=== PATIENT | female | born 1975 | race Caucasian/White ===

== ENCOUNTER 2016-04-24 08:27 | Emergency (ER) | payer MEDICAID ==
[2016-04-24 08:33] VITALS: BP 86/49
[2016-04-24] MEDS ORDERED: EPINEPHRine /Lidocaine 1% 20 mL Vial INJ ONE (08:39)
[2016-04-24] MEDS ORDERED: Sodium Chloride 0.9% 1,000 ML IV ONE (08:49)
[2016-04-24 09:28] LABS: % BASOPHILS 0.5 % (0.0-2.0); % LYMPHOCYTES 15.1 % (20.0-50.0); % NEUTROPHILS 67.4 % (40.0-80.0); HEMOGLOBIN 13.4 gm/dL (11.7-15.5); MEAN CELL VOLUME 86.7 fl (81-100); MEAN CORPUSCULAR HGB CONC 33.4 pg (28.0-36.0); NEUTROPHILE ABSOLUTE 3.8 Th/cmm (1.8-8.0); PLATELET COUNT 148 Th/cmm (150-400); RED BLOOD COUNT 4.62 Mil/cmm (3.80-5.10); RED CELL DISTRIBUTION WIDTH 12.1 % (11.5-20.0); WHITE BLOOD COUNT 5.6 Th/cmm (4.8-10.8)
--- NOTE | 2016-04-24 09:33 | ED Physician Chart ---
Chief Complaint/HPI - Patient Information Date Seen:: 04/24/16 Time Seen:: 09:27 Chief Complaint:: lac face History of Present Illness:: pt here for large frontal lac sustained 30 min before ed. pt was at home..had felt dizzy all morning and stood up and walked across rm...had syncope spell and fell hit door frame w face. lrg vertical central forehead lac. has pain in head only at lac area now. denies neck pain. no neuro changes. pt has had a mild cough and clear rhinitis lately. no jose illness. feels sob at times briefly going back 3x in last year. no hx of palpitations. no cp. last saw a dr 3 yrs ago and all was well. she was told her chol was high but was not put on any med for this. pt took nyquil last nt for sinus congestion.. Allergies:: Allergies Allergy/AdvReac Type Severity Reaction Status Date / Time No Known Allergies Allergy Verified 04/24/16 08:32 Vitals:: Vital Signs - 8 hr 04/24/16 04/24/16 08:33 08:42 Temp 100.4 F HR 85 RR 16 BP 86/49 86/49 O2 Sat % 99 Historian:: Patient, Family Member () Review of Systems - Review of Systems General/Constitutional: Fever (? in ed), No fever, No chills, No weight loss, No weakness, No diaphoresis, No edema, No loss of appetite Skin: No skin lesions, No rash, Bruising Head: Headache, No headache, No light-headedness Eyes: No loss of vision, No pain, No diplopia ENT: No earache, Nasal drainage, No sore throat, No tinnitus Neck: No neck pain, No swelling, No thyromegaly, No stiffness, No mass noted Cardio Vascular: No chest pain, No palpitations, No PND, No orthopnea, No edema Pulmonary: No SOB, Cough, No sputum, No wheezing GI: No nausea, No vomiting, No diarrhea, No pain, No melena, No hematochezia, No constipation, No hematemesis G/U: No dysuria, No frequency, No hematuria Musculoskeletal: No bone or joint pain, No back pain, No muscle pain Endocrine: No polyuria, No polydipsia Psychiatric: No prior psych history, No depression, No anxiety, No suicidal ideation Hematopoietic: No bruising, No lymphadenopathy Allergic/Immuno: No urticaria, No angioedema Neurological: No syncope, No focal symptoms, No weakness, No paresthesia, No headache, No seizure, No dizziness, No confusion, No vertigo Past Medical History - Past Medical History Past Medical History: Dyslipidemia Social History: , Other (2 kids) Medication: None Family Medical History - Family Member Mother History Unknown: Yes Ethnicity: Physical Exam - Physical Examination General/Constitutional: Awake, Well-developed, well-nourished, Alert, No distress, GCS 15, Non-toxic appearing, Ambulatory Head: Atraumatic Eyes: Lids, conjuctiva normal, PERRL, EOMI Skin: No rash, No skin lesions, No ecchymosis, Well hydrated, No lymphadenopathy Other Skin comments:: central forhead has a 3.5cm vertical deep lac. no extension to [place]. no active bleed. no jose vasc or neuro injury or defecit. no tndr post neck. eomi/perrla ENMT: External ears, nose nl, Nasal exam nl, Lips, teeth, gums nl Neck: Nontender, Full ROM w/o pain, No JVD, No nuchal rigidity, No bruit, No mass, No stridor Respiratory: Nl effort/Exclusion, Clear to Auscultation, No Wheeze/Rhonchi/Rales Cardio Vascular: RRR, No murmur, gallop, rubs, NL S1 S2 GI: No tenderness/rebounding/guarding, No organomegaly, No hernia, Normal BS's, Nondistended, No mass/bruits, No McBurney tenderness : No CVA tenderness Extremities: No tenderness or effusion, Full ROM, normal strength in all extremities, No edema, Normal digits & nails Neuro/Psych: Alert/oriented, DTR's symmetric, Normal sensory exam, Normal motor strength, Judgement/insight normal, Mood normal, Normal gait, No focal deficits Other Neuro/Psych comments:: pt prefers latvian language. is making sense. translates at times. Misc: normal gait, Normal back, No paraspinal tenderness Labs/Radiology/EKG Results - Lab Results Results: Laboratory Tests 04/24/16 09:00 Urine Test NEGATIVE Laboratory Tests 01/04/24/16 04/24/16 09:00 09:00 09:25 WBC 5.6 RBC 4.62 Hgb 13.4 Hct 40.0 MCV 86.7 MCH 29.0 MCHC Differential 33.4 RDW 12.1 Plt Count 148 L MPV 9.0 Neutrophils % 67.4 Lymphocytes % 15.1 L Monocytes % 12.0 H Eosinophils % 5.0 Basophils % 0.5 Sodium Potassium Chloride Carbon Dioxide Anion Gap BUN Creatinine Est GFR ( Amer) Est GFR (Non-Af Amer) BUN/Creatinine Ratio Glucose Calcium Total Bilirubin AST ALT Alkaline Phosphatase Troponin I Total Protein Albumin Globulin Albumin/Globulin Ratio Serum , Qual Urine Source CLEAN C Urine Color YELLOW Urine Clarity SL. CLOUDY Urine pH 7.0 Ur Specific [place] 1.020 Urine Protein TRACE Urine Glucose (UA) NEGATIVE Urine Ketones NEGATIVE Urine Blood NEGATIVE Urine Nitrate POSITIVE H Urine Bilirubin NEGATIVE Urine Urobilinogen 0.2 Ur Leukocyte Esterase TRACE H Urine RBC 0-2 Urine WBC 6-10 H Ur Epithelial Cells FEW Urine Bacteria MANY Urine Test NEGATIVE 04/24/16 04/24/16 04/24/16 09:25 09:25 09:25 WBC RBC Hgb Hct MCV MCH MCHC Differential RDW Plt Count MPV Neutrophils % Lymphocytes % Monocytes % Eosinophils % Basophils % Sodium 133 L Potassium 3.4 L Chloride 103 Carbon Dioxide 25.8 Anion Gap 7.6 BUN 10 Creatinine 0.9 Est GFR ( Amer) > 60.0 Est GFR (Non-Af Amer) > 60.0 BUN/Creatinine Ratio 11.1 Glucose 121 H Calcium 9.0 Total Bilirubin 0.4 AST 20 ALT 15 Alkaline Phosphatase 51 Troponin I < 0.01 L Total Protein 7.4 Albumin 4.3 Globulin 3.1 Albumin/Globulin Ratio 1.4 Serum , Qual NEGATIVE Urine Source Urine Color Urine Clarity Urine pH Ur Specific [place] Urine Protein Urine Glucose (UA) Urine Ketones Urine Blood Urine Nitrate Urine Bilirubin Urine Urobilinogen Ur Leukocyte Esterase Urine RBC Urine WBC Ur Epithelial Cells Urine Bacteria Urine Test - Radiology Results Results: ct head nad cxr nad - EKG Interpretations EKG Time:: 09:55 Rhythm: nsr [place]: 64 Rate: 77 Comments:: wnl/ Assessment Location:: 3.5cm vertical forehead lac betadyne prep. lido 1pct w ept 8ml local for anesth copious ns irrigation explored...no f.b. sutured w 6.0 nylon w good approximation. Laceration Type:: Intermediate ED Septic Shock - . Is Septic Shock (SBP<90, OR Lactate>4 mmol\L) present?: No - <6hrs of presentation: Vital Signs: Vital Signs - 8 hr 04/24/16 04/24/16 08:33 08:42 Temp 100.4 F HR 85 RR 16 BP 86/49 86/49 O2 Sat % 99 Reassessment (Disposition) - Reassessment Reassessment Condition:: Improved - Diagnosis Diagnosis:: 1) s/p fall, near-syncope ...believed due to nyquil side effects vs vasovagal 2) 3.5cm forhead lac s/p sutured in ED 3) viral syndrome 4) uti - Aftercare/Follow up Instructions Aftercare/Follow-Up Instructions:: Counseled pt & family regarding lab results/ diagnosis & need follow up Notes:: had a long talk w pt , sister and regarding results and poss dispo. offered admit and dw pt/fam pros and cons of admission. pt is stating she feels well now and wants to go home. no palpitations nor cp in ed. no GAN now. no n/v. not orthostatic. family says pt will not be alone at home. there are adults who can observe her for neuro changes q 2 hrs at home...ret if worse or sz or vomiting of confusion or focal neuro change. will rx claritin for nasal decongestant...not advising further nyquil. Medication Prescribed:: rx claritin and levaquin (500/d x1wk for uti) - Patient Disposition Discharge/Transfer:: Home Condition at Disposition:: Improved
[2016-04-24 09:38] LABS: URINE BILIRUBIN NEGATIVE (NEGATIVE); URINE BLOOD NEGATIVE (NEGATIVE); URINE COLOR YELLOW; URINE GLUCOSE (UA) NEGATIVE (NEGATIVE); URINE KETONE NEGATIVE (NEGATIVE); URINE PROTEIN TRACE mg/dL (NEGATIVE); URINE UROBILINOGEN 0.2 E.U./dL (0.2 - 1.0)
[2016-04-24 09:41] LABS: URINE BACTERIA MANY /hpf (NONE SEEN); URINE EPITHELIAL CELLS FEW /lpf (FEW); URINE RBC 0-2 /hpf (0-5)
[2016-04-24 09:43] LABS: ALB/GLOB RATIO 1.4 (1.0-1.8); ALKALINE PHOSPHATASE 51 U/L (34-104); ANION GAP 7.6 (7.0-16.0); BILIRUBIN,TOTAL 0.4 mg/dL (0.3-1.0); BUN - UREA NITROGEN 10 mg/dL (7-25); BUN/CREATININE RATIO 11.1; CARBON DIOXIDE 25.8 mEq/L (21.0-31.0); CHLORIDE 103 mEq/L (98-107); CREATININE - SERUM 0.9 mg/dL (0.6-1.2); GLUCOSE 121 mg/dL (70-105); POTASSIUM SERUM 3.4 mEq/L (3.5-5.1); SGOT 20 U/L (13-39); SGPT/ALT 15 U/L (7-52); SODIUM SERUM 133 mEq/L (136-145)
--- NOTE | 2016-04-24 10:40 | Diagnostic Imaging Report ---
CT scan of the brain without contrast History: Syncope, trauma Total DLP equals 507 CTDI equals 31.7 Axial sections were obtained from the base of the skull to the vertex. There is a normal ventricular system size. No focal parenchymal lesions are seen. No evidence of any mass effect or shift of midline structures. No extra-axial masses or abnormal fluid collections. Impression: Negative examination
--- NOTE | 2016-04-24 10:41 | Diagnostic Imaging Report ---
Portable chest x-ray History: Fever Allowing for portable technique the heart size is normal. No focal pulmonary parenchymal processes. No hilar or mediastinal abnormalities. Impression: No acute abnormalities.
[2016-04-24] MEDS ORDERED: Levofloxacin 500mg/100mL 500 MG/100 ML BAG IV ONE ×2 (11:13→11:29)
== END 2016-04-24 12:00 | disposition home or self-care (01) ==
LOC: ER 08:27
DX: R55 Syncope and collapse (principal); S01.81XA Laceration without foreign body of other part of head, initial encounter; B34.9 Viral infection, unspecified; N39.0 Urinary tract infection, site not specified; W01.198A Fall on same level from slipping, tripping and stumbling with subsequent striking against other object, initial encounter; Y93.89 Activity, other specified; Y92.89 Other specified places as the place of occurrence of the external cause; Y99.8 Other external cause status
CPT/HCPCS: 99285; 96365; 12013; 93005; 71010; 70450; 84484; 36415; 85025; 81001; 81025 ×2; 80053; 87040 ×2; 90715; J1956; A4217; J2001; J7030; X6488; Z7610